=== PATIENT | male | born 1980 | race African-American/Black ===

== ENCOUNTER 2019-05-31 18:47 | Emergency (ER) | payer SELFPAY ==
[~2019-05-31] VITALS: Ht 182.9 cm; Wt 87.7 kg
[2019-05-31] MEDS: KETOROLAC TROMETHAMINE 60 MG/2 ML VIAL IM ONE (20:08)
[2019-05-31] MEDS: CYCLOBENZAPRINE HCL 10 MG TABLET PO ONE (20:08)
[2019-05-31 21:00] VITALS: BP 136/89
== END 2019-05-31 21:03 | disposition home or self-care (01) ==
LOC: EMS 18:48
DX: M54.5 Low back pain (principal); F12.90 Cannabis use, unspecified, uncomplicated
CPT/HCPCS: 96372; 99283; J1885

== ENCOUNTER 2021-08-22 19:31 | Emergency (ER) | payer MEDICAID ==
[~2021-08-22] VITALS: Ht 182.9 cm; Wt 98.2 kg
[2021-08-22 22:30] VITALS: BP 145/91
[2021-08-22] MEDS ORDERED: IBUPROFEN 800 MG TABLET PO ONE (23:00)
[2021-08-22] MEDS ORDERED: ACETAMINOPHEN 500 MG TABLET PO ONE (23:00)
== END 2021-08-22 23:50 | disposition home or self-care (01) ==
LOC: EMS 19:33
DX: S16.1XXA Strain of muscle, fascia and tendon at neck level, initial encounter (principal); V49.9XXA Car occupant (driver) (passenger) injured in unspecified traffic accident, initial encounter; Y93.89 Activity, other specified; Y92.488 Other paved roadways as the place of occurrence of the external cause; Y99.8 Other external cause status
CPT/HCPCS: 99283

== ENCOUNTER 2024-04-20 08:33 | Emergency (ER) | payer MEDICAID ==
[~2024-04-20] VITALS: Ht 182.9 cm; Wt 107.7 kg
[2024-04-20 08:36] VITALS: TEMP 98
[2024-04-20 10:45] VITALS: BP 132/89; PULSE 79; RESP 18
== END 2024-04-20 11:12 | disposition home or self-care (01) ==
LOC: EMS 08:33
DX: S01.412A Laceration without foreign body of left cheek and temporomandibular area, initial encounter (principal); F17.210 Nicotine dependence, cigarettes, uncomplicated; F12.90 Cannabis use, unspecified, uncomplicated; Y04.0XXA Assault by unarmed brawl or fight, initial encounter; Y93.89 Activity, other specified; Y92.89 Other specified places as the place of occurrence of the external cause; Y99.8 Other external cause status
CPT/HCPCS: 70450; 70486; 99284

== ENCOUNTER 2025-07-23 10:51 | Emergency (ER) | payer MEDICAID ==
[~2025-07-23] VITALS: Ht 182.9 cm; Wt 100.0 kg
[2025-07-23 10:56] VITALS: TEMP 98.3
[2025-07-23] MEDS ORDERED: IBUP-1492 PO (13:26)
[2025-07-23 13:34] VITALS: BP 150/82; PULSE 72; RESP 16; O2SAT 98
== END 2025-07-23 13:50 | disposition home or self-care (01) ==
LOC: EMS 11:03
DX: S20.212A Contusion of left front wall of thorax, initial encounter (principal); S40.012A Contusion of left shoulder, initial encounter; S00.93XA Contusion of unspecified part of head, initial encounter; I10 Essential (primary) hypertension; F17.210 Nicotine dependence, cigarettes, uncomplicated; V49.9XXA Car occupant (driver) (passenger) injured in unspecified traffic accident, initial encounter; W22.09XA Striking against other stationary object, initial encounter; Y93.89 Activity, other specified; Y92.410 Unspecified street and highway as the place of occurrence of the external cause; Y99.8 Other external cause status
CPT/HCPCS: 71111; 99283